=== PATIENT | female | born 1990 | race Caucasian/White ===

== ENCOUNTER 2019-11-05 07:41 | Emergency (ER) | payer SELFPAY ==
[2019-11-05 07:50] VITALS: BP 134/70; PULSE 93; TEMP 98.2; BMI 27.3
--- NOTE | 2019-11-05 08:47 | PDOC ---
History of Present Illness - General Chief Complaint: Pain, Acute Stated Complaint: ABDOMINAL PAIN Time Seen by Provider: 11/05/19 08:10 - History of Present Illness Initial Comments: 11/05/19 08:43 CHIEF COMPLAINT: abd pain HISTORY OF PRESENT ILLNESS: 29 yo with no PMH presents to ED with pain to lower abdomen x 1 week. Patient reports urinary frequency but denies any dysuria. Patient describes the pain as a "really sharp pain" to epigastrum that radiates to b/l lower abdomen. Pain is worsened when eating. Denies F/N/V/D. LMP 3 weeks ago. No recent travel or sick contacts. PAST MEDICAL HISTORY: Denies past medical history FAMILY HISTORY: Denies SOCIAL HISTORY: Denies tobacco, alcohol, illicit drug use. SURGICAL HISTORY: Denies ALLERGIES: No known drug allergies REVIEW OF SYSTEMS General/Constitutional: Denies fever or chills. Denies weakness, weight change. HEENT: Denies change in vision. Denies ear pain or discharge. Denies sore throat. Cardiovascular: Denies chest pain or shortness of breath. Respiratory: Denies cough, wheezing, or hemoptysis. Gastrointestinal: Epigastric pain radiating to b/l lower abdomen. Denies nausea , vomiting, diarrhea or constipation. Denies rectal bleeding. Genitourinary: Denies dysuria, frequency, or change in urination. Musculoskeletal: Denies joint or muscle swelling or pain. Denies neck or back pain. Skin and breasts: Denies rash or easy bruising. Neurologic: Denies headache, vertigo, loss of consciousness, or loss of sensation. Psychiatric: Denies depression or anxiety. PHYSICAL EXAM General Appearance: Well-appearing, appropriately dressed. No apparent distress , no intoxication. HEENT: EOMI, PERRLA, normal ENT inspection, normal voice, TMs normal, pharynx normal. No conjunctival pallor. No photophobia, scleral icterus. Neck: Supple. Trachea midline. No tenderness, rigidity, carotid bruit, stridor , lymphadenopathy, or thyromegaly. Respiratory/Chest: Lungs CTAB. No shortness of breath, chest tenderness, respiratory distress, accessory muscle use. No crackles, rales, rhonchi, stridor , wheezing, dullness Cardiovascular: RRR. S1, S2. No JVD, murmur, bradycardia, tachycardia. Vascular Pulses: Dorsalis-Pedis (R): 2+, Dorsalis-Pedis (L): 2+ Gastrointestinal/Abdominal: Mild TTP to epigastrum. Normal bowel sounds. No organomegaly, pulsatile mass, guarding, hernia, hepatomegaly, splenomegaly. Musculoskeletal/Extremities: Normal inspection. FROM of all extremities, normal capillary refill. Pelvis Stable. No CVA tenderness. No tenderness to extremities, pedal edema, swelling, erythema or deformity. Integumentary: Appropriate color, dry, warm. No cyanosis, erythema, jaundice or rash Neurologic: microstrategy developer II-XII intact. Fully oriented, alert. Appropriate mood/affect. Motor strength 5/5. No appreciable EOM palsy, facial droop or sensory deficit. Past History - Past Medical History Allergies/Adverse Reactions: Allergies Allergy/AdvReac Type Severity Reaction Status Date / Time No Known Allergies Allergy Verified 11/05/19 07:48 Home Medications: Ambulatory Orders Famotidine [Pepcid] 20 mg PO DAILY #10 tablet 11/05/19 - Psycho Social/Smoking Cessation Hx Smoking History: Never smoked *Physical Exam - Vital Signs Last Vital Signs Temp Pulse Resp BP Pulse Ox 98.2 F 93 H 20 134/70 100 11/05/19 07:48 11/05/19 07:48 11/05/19 07:48 11/05/19 07:48 11/05/19 07:48 ED Treatment Course - LABORATORY CBC & Chemistry Diagram: 11/05/19 09:15 11/05/19 09:15 Medical Decision Making - Medical Decision Making 11/05/19 10:44 29 yo with no PMH presents to ED with pain to lower abdomen x 1 week. -labs -urine -pepcid/protonix labs, urine negative Patient reassessed after meds, patient is feeling much better. Advised patient to take medication as prescribed and follow up with PCP within the next week. Advised patient of signs and symptoms for return to ED. Patient verbalized understanding and agrees to plan. Discharge - Discharge Information Problems reviewed: Yes Clinical Impression/Diagnosis: Abdominal pain Condition: Stable Disposition: HOME - Admission No - Additional Discharge Information Prescriptions: Famotidine [Pepcid] 20 mg PO DAILY #10 tablet - Follow up/Referral Referrals: Tobias Mccoy MD [Staff Physician] - - Patient Discharge Instructions Patient Printed Discharge Instructions: DI for Gastritis - Post Discharge Activity
[2019-11-05] MEDS ORDERED: FAMOTIDINE 20 MG/50 ML IVPB 20 MG/50 ML MG IVPB ONE ×2 (08:49→09:02)
[2019-11-05] MEDS ORDERED: PANTOPRAZOLE SODIUM 40 MG VIAL IVPUSH ONE (08:49)
[2019-11-05] MEDS ORDERED: PANTOPRAZOLE SODIUM 40 MG VIAL ONE (09:02)
[2019-11-05] MEDS ORDERED: SODIUM CHLORIDE 0.9% 500 ML INFUS.BAG IV ONE (09:12)
[2019-11-05 09:37] LABS: URINE APPEARANCE CLEAR; URINE BILIRUBIN NEGATIVE (NEGATIVE); URINE COLOR YELLOW; URINE GLUCOSE (UA) NEGATIVE (NEGATIVE); URINE KETONE NEGATIVE (NEGATIVE); URINE LEUK ESTERASE NEGATIVE (NEGATIVE); URINE NITRITE NEGATIVE (NEGATIVE); URINE PROTEIN NEGATIVE (NEGATIVE); URINE UROBILINOGEN 0.2 mg/dL (0.2-1.0)
[2019-11-05 09:42] LABS: BASO % 0.3 % (0-2.0); EOS % 1.5 % (0-4.5); HEMATOCRIT 42.6 % (32.4-45.2); HEMOGLOBIN 14.3 GM/dL (10.7-15.3); LYMPH % 28.3 % (8-40); MCH 29.5 pg (25.7-33.7); MCHC 33.6 g/dl (32.0-36.0); MEAN CELL VOLUME 87.8 fl (80-96); MEAN PLT VOLUME 7.5 fl (7.5-11.1); MONO % 9.5 % (3.8-10.2); NEUT % 60.4 % (42.8-82.8); PLATELET COUNT 354 K/MM3 (134-434); RBC 4.85 M/mm3 (3.60-5.2); RDW 13.2 % (11.6-15.6); WHITE BLOOD COUNT 7.6 K/mm3 (4.0-10.0)
[2019-11-05 10:13] LABS: ALBUMIN 4.4 g/dl (3.4-5.0); BILIRUBIN,TOTAL 0.5 mg/dL (0.2-1); CALCIUM 9.1 mg/dL (8.5-10.1); CREATININE 0.7 mg/dL (0.55-1.3); POTASSIUM 3.8 mmol/L (3.5-5.1); TOT PROT 7.9 g/dl (6.4-8.2)
== END 2019-11-05 11:20 | disposition home or self-care (01) ==
LOC: JER 07:41
PROC: 3E033GC Introduction of Other Therapeutic Substance into Peripheral Vein, Percutaneous Approach (ICD-10-PCS; principal; 2019-11-05)
DX: R10.9 Unspecified abdominal pain (principal)
CPT/HCPCS: 36415; 80053; 81003; 83690; 85025; 87086; 99282-25

== ENCOUNTER 2019-12-31 16:03 | Emergency (ER) | payer OTHER ==
[2019-12-31 16:10] VITALS: BMI 26.9
--- NOTE | 2019-12-31 16:10 | PDOC ---
Rapid Medical Evaluation Time Seen by Provider: 12/31/19 16:06 Medical Evaluation: Allergies Allergy/AdvReac Type Severity Reaction Status Date / Time No Known Allergies Allergy Verified 11/05/19 07:48 12/31/19 16:07 CC: vaginal discharge s/p biopsy. 11 wks . HPV+ PE:deferred Orders: labs, urine, TVUS Patient will proceed to ED for evaluation. Discharge Disposition - Diagnosis Vaginal discharge during - Referrals - Patient Instructions - Post Discharge Activity
[2019-12-31 17:10] LABS: BASO % 0.2 % (0-2.0); HEMOGLOBIN 13.4 GM/dL (10.7-15.3); MCH 29.9 pg (25.7-33.7); MCHC 34.2 g/dl (32.0-36.0); MEAN CELL VOLUME 87.3 fl (80-96); MEAN PLT VOLUME 7.9 fl (7.5-11.1); MONO % 8.3 % (3.8-10.2); NEUT % 66.5 % (42.8-82.8); PLATELET COUNT 320 K/MM3 (134-434); RBC 4.47 M/mm3 (3.60-5.2); RDW 12.9 % (11.6-15.6); WHITE BLOOD COUNT 8.6 K/mm3 (4.0-10.0)
[2019-12-31 17:20] LABS: URINE APPEARANCE CLEAR; URINE BILIRUBIN NEGATIVE (NEGATIVE); URINE COLOR YELLOW; URINE GLUCOSE (UA) NEGATIVE (NEGATIVE); URINE KETONE NEGATIVE (NEGATIVE); URINE LEUK ESTERASE NEGATIVE (NEGATIVE); URINE NITRITE NEGATIVE (NEGATIVE); URINE PROTEIN NEGATIVE (NEGATIVE); URINE UROBILINOGEN 0.2 mg/dL (0.2-1.0)
[2019-12-31 18:13] LABS: BLOOD UREA NITROGEN 7.8 mg/dL (7-18); CALCIUM 9.2 mg/dL (8.5-10.1); CREATININE 0.7 mg/dL (0.55-1.3); POTASSIUM 3.9 mmol/L (3.5-5.1)
--- NOTE | 2019-12-31 18:53 | PDOC ---
History of Present Illness - General Chief Complaint: Vaginal Bleeding Stated Complaint: 11 WEEK PREG, PAIN Time Seen by Provider: 12/31/19 16:06 History Source: Patient Exam Limitations: No Limitations Past History - Past Medical History Allergies/Adverse Reactions: Allergies Allergy/AdvReac Type Severity Reaction Status Date / Time No Known Allergies Allergy Verified 12/31/19 16:10 Home Medications: Ambulatory Orders Famotidine [Pepcid] 20 mg PO DAILY #10 tablet 11/05/19 COPD: No - Reproductive History Is Patient Now?: Yes (#): 1 Para: 0 Cervical CA: No Dysfunctional Uterine Bleeding: No Ectopic : No Endometrial CA: No Polycystic Ovaries: No Therapeutic (s) & number: No Tubal Ligation: No - Psycho Social/Smoking Cessation Hx Smoking History: Never smoked Have you smoked in the past 12 months: No Information on smoking cessation initiated: No Hx Alcohol Use: No Drug/Substance Use Hx: No *Physical Exam - Vital Signs Last Vital Signs Temp Pulse Resp BP Pulse Ox 98.8 F 81 17 128/74 100 12/31/19 16:08 12/31/19 16:08 12/31/19 16:08 12/31/19 16:08 12/31/19 16:08 - Physical Exam General Appearance: No: Apparent Distress Respiratory/Chest: positive: Lungs Clear, Normal Breath Sounds. negative: Respiratory Distress Cardiovascular: positive: Regular Rhythm, Regular Rate, S1, S2. negative: Murmur Female Pelvic Exam: positive: normal external exam, other (white-yellowish discharge in vaginal canal). negative: CMT, adnexal tenderness, vaginal bleeding Gastrointestinal/Abdominal: positive: Normal Bowel Sounds, Soft. negative: Tender Integumentary: positive: Normal Color Neurologic: positive: Alert ED Treatment Course - LABORATORY CBC & Chemistry Diagram: 12/31/19 16:35 12/31/19 16:35 - ADDITIONAL ORDERS Additional order review: Laboratory Results 12/31/19 12/31/19 16:35 16:35 Sodium 137 Potassium 3.9 Chloride 104 Carbon Dioxide 25 Anion Gap 7 L BUN 7.8 Creatinine 0.7 Est GFR (CKD-EPI)AfAm 134.75 Est GFR (CKD-EPI)NonAf 116.26 Random Glucose 83 Calcium 9.2 Beta HCG, Quant 12383.7 Urine Color Yellow Urine Appearance Clear Urine pH 7.0 Ur Specific [place] 1.017 Urine Protein Negative Urine Glucose (UA) Negative Urine Ketones Negative Urine Blood Negative Urine Nitrite Negative Urine Bilirubin Negative Urine Urobilinogen 0.2 Ur Leukocyte Esterase Negative 12/31/19 16:35 RBC 4.47 MCV 87.3 MCHC 34.2 RDW 12.9 MPV 7.9 Neutrophils % 66.5 Lymphocytes % 24.0 Monocytes % 8.3 Eosinophils % 1.0 Basophils % 0.2 Medical Decision Making - Medical Decision Making 29-year-old female with no significant past medical history, currently 11 weeks , LNMP October 10, presents with unusual vaginal discharge from today. Patient states she was recently tested positive for HPV around 2 weeks ago and had colposcopy done 3 days ago by her FRAME STRIPPER Dr. Carney. Patient states she spoke to Dr. Carney who advised her to come to the ED for pelvic ultrasound. Denies fever, shortness of breath, chest pain, nausea, vomiting, vaginal bleeding, urinary symptoms. Ultrasound shows evidence of IUP at 12 weeks 2 days and a 2.8 cm left ovarian cyst Discussed with Dr. Carney who states that the discharge is normal for the patient to have as she had applied a cream on the patient's cervix which can cause this discharge, which can last for 4 to 5 days; advised the patient can follow-up with her next week as scheduled 12/31/19 18:48 Discharge - Discharge Information Problems reviewed: Yes Clinical Impression/Diagnosis: Vaginal discharge during Qualifiers: Trimester: second trimester Qualified Code(s): O26.892 - Other specified related conditions, second trimester; N89.8 - Other specified noninflammatory disorders of vagina Condition: Stable Disposition: HOME - Admission No - Additional Discharge Information Prescription Drug Monitoring Program (I-STOP) results: I-STOP not reviewed - Follow up/Referral Referrals: Margarita Carney MD [Primary Care Provider] - 3 days - Patient Discharge Instructions Additional Instructions: Thank you for choosing [facility]. It was a pleasure taking care of you. As discussed with your FRAME STRIPPER, this discharge is normal to have after the biopsy and it can last from 4 to 5 days Please continue follow-up with Dr. Carney for your Return to the Emergency Department if your symptoms worsen or persist or have other concerning symptoms. - Post Discharge Activity
[2019-12-31 19:08] VITALS: BP 115/79; PULSE 89; TEMP 98
== END 2019-12-31 19:08 | disposition home or self-care (01) ==
LOC: JER 16:03
DX: O26.891 Other specified pregnancy related conditions, first trimester (principal); N89.8 Other specified noninflammatory disorders of vagina; Z3A.12 12 weeks gestation of pregnancy; Z98.890 Other specified postprocedural states
CPT/HCPCS: 36415; 76801-TC; 80048; 81003; 84702; 85025; 86850; 86900; 86901; 87086; 99284-25

== ENCOUNTER 2020-07-10 00:58 | Inpatient (IN) | payer OTHER ==
[2020-07-10] MEDS ORDERED: OXYTOCIN 20 UNITS in 0.9% NS 20 UNIT/1,000 ML INFUS.BAG IV ONE ×2 (01:42→03:32)
[2020-07-10] MEDS ORDERED: OXYTOCIN 20 UNITS in 0.9% NS 20 UNIT/1,000 ML INFUS.BAG IV SCH (01:45)
--- NOTE | 2020-07-10 02:03 | PN ---
Delivery - Delivery Vaginal Delivery: No Problems Type of Anesthesia: Local Episiotomy/Laceration: 1st degree EBL (cc): 200 Delivery, Single - Stages of Labor Placenta: Yes: Spontaneous - Condition of Infant Stockroom Worker/Supervisor Food Checkers And Cashiers Present: No Position: Right, OA - [place] Feeding Plan Benefits of Exclusively reinforced: No Remarks - Remarks Remarks: no complications
[2020-07-10] MEDS ORDERED: IBUPROFEN 600 MG TABLET (FP) PO PRN (02:04)
[2020-07-10] MEDS ORDERED: BISACODYL 10 MG SUPP.RECT RC PRN (02:04)
[2020-07-10] MEDS ORDERED: METHYLERGONOVINE MALEATE 0.2 MG/1 ML AMP IM PRN (02:04)
[2020-07-10] MEDS ORDERED: oxyCODONE HCL 5 MG TABLET PO PRN (02:04)
[2020-07-10] MEDS ORDERED: ACETAMINOPHEN 325 MG TABLET (FP) PO PRN (02:04)
[2020-07-10] MEDS ORDERED: WITCH HAZEL 50% (TUCKS) 40 PAD/JAR PAD TP PRN (02:04)
[2020-07-10] MEDS ORDERED: BENZOCAINE 20% 57 GM BOTTLE TP PRN (02:04)
[2020-07-10] MEDS ORDERED: BENZOCAINE 28 GM HEMORRHOIDAL OINTMENT TP PRN (02:04)
--- NOTE | 2020-07-10 02:06 | HP ---
Past Medical History - Admission Chief Complaint: Contractions History of Present Illness: 29yo @ 39+wks here in labor, precipitous delivery Ctx since 9PM. 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: Alzheimer's, CVA, Dementia, Migraine, Multiple Sclerosis, Peripheral Neuropathy, Parkinson's, Seizure, Syncope, TIA, Vertigo, Other Cardiovascular: No: AFIB, Aneurysm, Aortic Insufficiency, Aortic Stenosis, CAD, CHF, Deep Vein Thrombosis, HTN, Hyperlipdemia, UT, Mitral Insufficiency, Mitral Stenosis, Murmur, Pulmonary Hypertension, Other Pulmonary: No: Asthma, Bronchitis, Cancer, COPD, O2 Dependent, Pneumonia, Previously Intubated, Pulmonary Embolus, Pulmonary Fibrosis, Sleep Apnea, Other Hepatobiliary: No: Cirrhosis, Cholelithiasis, Cholecystitis, Choledocholithiasis, Hepatitis A, Hepatitis B, Hepatitis C, Other Renal/: No: Renal Failure, Renal Inusuff, BPH, Cancer, Hematuria, Hemodialysis, Neurogenic Bladder, Renal Calculi, UTI, Other Reproductive: No: Ectopic , Endometriosis, Fibroids, PID, Polycystic Ovary Syndrome, Postmenopausal, Other ...: 1 ...Para: 0 ...Term: 0 ...: 0 ...Spon : 0 ...Induced : 0 ...Living Children: 0 ...EDC by Dates: 07/11/20 ...EDC by Sono: 07/11/20 Heme/Onc: Yes: Anemia - Past Surgical History Past Surgical History: Yes: None Hx Myomectomy: No Hx Transabdominal Cerclage: No - Smoking History Smoking history: Never smoked Have you smoked in the past 12 months: No - Alcohol/Substance Use Hx Alcohol Use: No History of Substance Use: reports: None - Social History Usual Living Arrangement: Yes: With Spouse Do you think of yourself as: Straight/Heterosexual ADL: Independent History of Recent Travel: No Home Medications - Allergies Allergies/Adverse Reactions: Allergies Allergy/AdvReac Type Severity Reaction Status Date / Time No Known Allergies Allergy Verified 04/07/20 19:02 - Home Medications Home Medications: Ambulatory Orders Prenat 115/Iron Fum/Folic/Dss [ 19 Tablet] 1 each PO DAILY 04/07/20 Physical Exam - Maternity - Abdominal Exam/OB Number of Fetuses: Single Presentation: Vertex Contractions: Yes Regularity: Regular Intensity: Strong Monitor Mode: External Category: I Accelerations: Non-Uniform Decelerations: None - Vaginal Exam/OB Vaginal Bleeding: No Dilatation (cm): 8 Effacement (%): 100 Amniotic Membrane Status: Ruptured Presentation: Vertex/Position Station: 0 - Physical Exam Edema: No Problem List - Problems (1) 39 weeks gestation of Code(s): Z3A.39 - 39 WEEKS GESTATION OF Assessment/Plan 29yo @ 39+wks who present in labor, delivered within 20 minutes of arrival to hospital Admit to L&D Admission labs Anticipate DAVION Carney MD
[2020-07-10] MEDS ORDERED: ELECTROLYTE-148 SOLN 1,000 ML IV SCH (02:15)
[2020-07-10] MEDS ORDERED: OXYTOCIN 20 UNITS in 0.9% NS 1,000 ML IV SCH (02:15)
[2020-07-10 03:46] VITALS: BMI 29.0
[2020-07-10 04:13] LABS: BASO % 0.1 % (0-2.0); EOS % 0.2 % (0-4.5); HEMATOCRIT 36.8 % (32.4-45.2); HEMOGLOBIN 12.4 GM/dL (10.7-15.3); LYMPH % 7.5 % (8-40); MCH 30.1 pg (25.7-33.7); MCHC 33.6 g/dl (32.0-36.0); MEAN CELL VOLUME 89.6 fl (80-96); MEAN PLT VOLUME 8.3 fl (7.5-11.1); MONO % 5.7 % (3.8-10.2); NEUT % 86.5 % (42.8-82.8); PLATELET COUNT 249 K/MM3 (134-434); RBC 4.11 M/mm3 (3.60-5.2); RDW 13.5 % (11.6-15.6); WHITE BLOOD COUNT 19.1 K/mm3 (4.0-10.0)
[2020-07-10 04:21] LABS: INR 0.96 (0.83-1.09); PROTHROMBIN TIME (PATIENT) 11.3 SEC (9.7-13.0)
[2020-07-10 04:24] LABS: ACTIVATED PTT 29.4 SECONDS (25.2-36.5)
[2020-07-10 04:35] LABS: CALCIUM 8.8 mg/dL (8.5-10.1); CREATININE 0.5 mg/dL (0.55-1.3); POTASSIUM 3.7 mmol/L (3.5-5.1)
[2020-07-10] MEDS: ACETAMINOPHEN 325 MG TABLET (FP) PO PRN ×2 (05:15→11:49)
[2020-07-10] MEDS: IBUPROFEN 600 MG TABLET (FP) PO PRN ×2 (05:21→11:50)
[2020-07-10] MEDS ORDERED: PRENATAL VITAMINS W/ FOLIC ACID TABLET (FP) PO SCH (10:00)
--- NOTE | 2020-07-11 07:48 | DS ---
Physical Examination Vital Signs: Vital Signs Temperature 98.3 F 07/11/20 02:00 Pulse Rate 89 07/11/20 02:00 Respiratory Rate 18 07/11/20 02:00 Blood Pressure 122/74 07/11/20 02:00 O2 Sat by Pulse Oximetry (%) 99 07/10/20 22:00 Findings/Remarks: Ambulating, tolerating Po, lochia decreased, voiding, breast feeding. PP precautions discussed Constitutional: Yes: No Distress HENT: Yes: Atraumatic Neck: Yes: Supple Cardiovascular: Yes: Regular Rate and Rhythm Respiratory: Yes: Regular Gastrointestinal: Yes: Soft Renal/: Yes: Other Breast(s): Yes: Other Musculoskeletal: Yes: WNL Extremities: Yes: WNL Edema: Yes Edema: LLE: Trace, RLE: Trace Integumentary: Yes: WNL Wound/Incision: Yes: Well Approximated Neurological: Yes: Alert, Oriented ...Motor Strength: WNL Psychiatric: Yes: Alert, Oriented Labs: CBC, BMP 07/10/20 04:04 07/10/20 04:04 Discharge Summary Problems reviewed: Yes Reason For Visit: LABOR Current Active Problems 39 weeks gestation of (Acute) Procedures: Principal: vaginal delivery Hospital Course: Uncomplicated Plan of Treatment: follow up in 4 weeks with provider at health center Condition: Stable - Instructions Diet, Activity, Other Instructions: Regular Diet Follow up in 4 weeks for your visit Referrals: Margarita Carney MD [Staff Physician] - Disposition: HOME - Home Medications Comprehensive Discharge Medication List: Ambulatory Orders Prenat 115/Iron Fum/Folic/Dss [ 19 Tablet] 1 each PO DAILY 04/07/20
[2020-07-11 15:38] LABS: BASO % 0.4 % (0-2.0); EOS % 1.6 % (0-4.5); HEMATOCRIT 36.4 % (32.4-45.2); HEMOGLOBIN 12.2 GM/dL (10.7-15.3); LYMPH % 16.8 % (8-40); MCH 30.1 pg (25.7-33.7); MCHC 33.3 g/dl (32.0-36.0); MEAN CELL VOLUME 90.3 fl (80-96); MEAN PLT VOLUME 8.2 fl (7.5-11.1); MONO % 8.7 % (3.8-10.2); NEUT % 72.5 % (42.8-82.8); PLATELET COUNT 263 K/MM3 (134-434); RBC 4.03 M/mm3 (3.60-5.2); RDW 14.1 % (11.6-15.6); WHITE BLOOD COUNT 11.5 K/mm3 (4.0-10.0)
[2020-07-11 17:09] VITALS: BP 120/68; PULSE 85; TEMP 98
[2020-07-11] MEDS ORDERED: SENNOSIDES/DOCUSATE COMBO (SENNA PLUS) TABLET (UD) PO PRN (22:00)
== END 2020-07-11 17:00 | disposition home or self-care (01) | DRG 807 ==
LOC: JDEL 00:58 → JLDR 01:30 → J3W 04:30
PROVIDERS: ADMIT Obstetrics & Gynecology; ATTEND Obstetrics & Gynecology
PROC: 10E0XZZ Delivery of Products of Conception, External Approach (ICD-10-PCS; principal; 2020-07-10)
DX: O70.0 First degree perineal laceration during delivery (principal); Z37.0 Single live birth; Z3A.39 39 weeks gestation of pregnancy; Z86.2 Personal history of diseases of the blood and blood-forming organs and certain disorders involving the immune mechanism
CPT/HCPCS: 36415; 59409; 80048; 85025; 85610; 85730; 86780; 86850; 86900; 86901; U0003

== ENCOUNTER 2021-06-20 10:17 | Day surgery (SDC) | payer OTHER ==
[2021-06-20 11:01] VITALS: BMI 30.1
[2021-06-20] MEDS ORDERED: ONDANSETRON 4 MG/2 ML VIAL IVPUSH PRN (12:28)
[2021-06-20] MEDS ORDERED: PROMETHAZINE HCL 25 MG/1 ML VIAL IVPB PRN (12:28)
[2021-06-20] MEDS ORDERED: LACTATED RINGERS SOLUTION 1,000 ML IV SCH (12:30)
[2021-06-20] MEDS ORDERED: ONDANSETRON 4 MG/2 ML VIAL IVPUSH ONE (12:30)
[2021-06-20 13:15] VITALS: BP 114/74; PULSE 84; TEMP 97.9
== END 2021-06-20 13:15 | disposition home or self-care (01) ==
LOC: FASU-ENDO 10:17
PROVIDERS: ATTEND Internal Medicine Gastroenterology
PROC: 0DJD8ZZ Inspection of Lower Intestinal Tract, Via Natural or Artificial Opening Endoscopic (ICD-10-PCS; principal; 2021-06-20 11:30)
DX: K92.1 Melena (principal); K64.1 Second degree hemorrhoids
CPT/HCPCS: 84703

== ENCOUNTER 2023-03-12 09:27 | Day surgery (SDC) | payer OTHER ==
[2023-03-07 15:17] VITALS: BMI 30.7
[2023-03-12 11:56] VITALS: TEMP 98
[2023-03-12 11:59] VITALS: BP 100/70; PULSE 76; RESP 19
== END 2023-03-12 12:20 | disposition home or self-care (01) ==
LOC: FASU-ENDO 09:27
PROVIDERS: ATTEND Internal Medicine Gastroenterology
PROC: 0DB68ZX Excision of Stomach, Via Natural or Artificial Opening Endoscopic, Diagnostic (ICD-10-PCS; 2023-03-12)
PROC: 0DB48ZX Excision of Esophagogastric Junction, Via Natural or Artificial Opening Endoscopic, Diagnostic (ICD-10-PCS; 2023-03-12)
PROC: 0DB98ZX Excision of Duodenum, Via Natural or Artificial Opening Endoscopic, Diagnostic (ICD-10-PCS; principal; 2023-03-12 11:20)
DX: K29.50 Unspecified chronic gastritis without bleeding (principal); K20.90 Esophagitis, unspecified without bleeding; R10.13 Epigastric pain
CPT/HCPCS: 84703; 88305-TC; 88342-TC